=== PATIENT | male | born 1950 | race American Indian/Alaskan Native ===

== ENCOUNTER 2018-11-25 10:40 | Inpatient (IN) | payer MEDICARE ==
--- NOTE | 2018-11-25 12:41 | Emergency Department Report ---
Chief Complaint: Chest Pain Stated Complaint: CHEST PAIN/DIZZY Time Seen by Provider: 11/25/18 12:22 - HPI History of Present Illness: 68-year-old -F[place] male presents to the emergency department with complaint of some vertigo-like symptoms with dizziness, as well as some midsternal chest pain has been going on for the past 2 days. The chest pain currently has improved. Patient has a history of diabetes, hypertension and is a tobacco smoker. He has a primary care physician but has not seen them in quite a while. He also complains of some numbness or paresthesias to the fingertips. - ROS Review of Systems: Positive for chest pain, dizziness, vertigo, numbness/paresthesias Negative for shortness of breath, fever, nausea, vomiting, back pain - Exam Vital Signs: Vital Signs 11/25/18 11:01 Temperature 98.4 F Pulse Rate 94 H Respiratory 20 Rate Blood Pressure 171/89 O2 Sat by Pulse 100 Oximetry Physical Exam: Patient is awake and alert and in no acute distress. Heart and lungs sounds are normal to auscultation. MSE screening note: Focused history and physical exam performed. Due to findings the following was ordered: The patient has a recent history of chest pain with multiple risk factors for coronary artery disease. She will be moved over to the main emergency Department side. I have started a chest pain workup on him. ED Disposition for MSE Condition: Stable Referrals: PRIMARY CARE, [Primary Care Provider] - 3-5 Days
[2018-11-25] MEDS ORDERED: ASPIRIN PO ONE (12:56)
[2018-11-25] MEDS ORDERED: NITRO-BID 2% TP ONE (12:56)
--- NOTE | 2018-11-25 13:03 | Emergency Department Report ---
HPI - General Chief Complaint: Chest Pain Time Seen by Provider: 11/25/18 12:22 - HPI HPI: Room 17 The patient is a 68-year-old male presenting with a chief complaint of chest pain. The patient states for the past 2-3 days he's had intermittent dull sub sternal chest pain. The patient states he feels near syncopal at times in the fingers on both hands are numb intermittently. Patient denies shortness of breath, nausea/vomiting or diaphoresis with this chest pain. Patient states he's never had a stress test or cardiac catheterization Location: Chest Duration: Intermittent 2-3 days Quality: Dull Severity: Currently 0/10 Modifying factors: [see above] Context: [see above] Mode of transportation: Unknown ED Past Medical Hx - Past Medical History Previous Medical History?: Yes Hx Hypertension: Yes (off of meds) Hx Diabetes: Yes (SINCE 1999) - Surgical History Past Surgical History?: No - Family History Family history: no significant - Social History Smoking Status: Never Smoker Substance Use Type: None - Medications Home Medications: Home Medications Medication Instructions Recorded Confirmed Last Taken Type HYDROcodone/APAP 5-325 [[place] 1 - 2 each PO Q6HR PRN #20 tablet 01/01/14 07/15/15 Unknown Rx 5/325 mg] Ibuprofen [Motrin 800 MG tab] 800 mg PO TID PRN #20 tablet 01/01/14 07/21/15 07/07/15 Rx Amlodipine Besylate 5 mg PO DAILY 07/15/15 07/21/15 07/21/15 06:30 History AtorvaSTATin [Lipitor] 20 mg PO DAILY 07/15/15 07/21/15 07/21/15 06:30 History Losartan Potassium 100 mg PO DAILY 07/15/15 07/21/15 07/21/15 06:30 History Metformin HCl [Metformin] 1,000 mg PO BID 07/15/15 07/21/15 07/20/15 17:00 History ED Review of Systems ROS: Stated complaint: CHEST PAIN/DIZZY Other details as noted in HPI Constitutional: denies: diaphoresis Eyes: denies: eye pain ENT: denies: throat pain Respiratory: denies: shortness of breath Cardiovascular: chest pain Endocrine: no symptoms reported Gastrointestinal: denies: nausea, vomiting Genitourinary: denies: dysuria Musculoskeletal: denies: back pain Neurological: paresthesias Physical Exam - Physical Exam Vital Signs: Vital Signs 11/25/18 11:01 Temperature 98.4 F Pulse Rate 94 H Respiratory 20 Rate Blood Pressure 171/89 O2 Sat by Pulse 100 Oximetry Physical Exam: GENERAL: The patient is well-developed well-nourished male sitting on stretcher not appearing to be in acute distress. [] HEENT: Normocephalic. Atraumatic. Extraocular motions are intact. Patient has moist mucous membranes. NECK: Supple. Trachea midline CHEST/LUNGS: Clear to auscultation. There is no respiratory distress noted. HEART/CARDIOVASCULAR: Regular. There is no tachycardia. There is no gallop rub or murmur. ABDOMEN: Abdomen is soft, nontender. Patient has normal bowel sounds. There is no abdominal distention. SKIN: There is no rash. There is no edema. There is no diaphoresis. NEURO: The patient is awake, alert, and oriented. The patient is cooperative. The patient has normal speech MUSCULOSKELETAL: There is no evidence of acute injury. ED Course Vital Signs 11/25/18 11:01 Temperature 98.4 F Pulse Rate 94 H Respiratory 20 Rate Blood Pressure 171/89 O2 Sat by Pulse 100 Oximetry ED Medical Decision Making - Lab Data Result diagrams: 11/25/18 12:50 11/25/18 12:50 Laboratory Tests 11/25/18 11/25/18 11/25/18 12:50 12:50 12:50 WBC 6.7 RBC 4.39 Hgb 13.1 Hct 39.6 MCV 90 MCH 30 MCHC 33 RDW 13.6 Plt Count 339 Lymph % (Auto) 37.9 H [place] % (Auto) 9.1 H Eos % (Auto) 2.3 Baso % (Auto) 1.3 Lymph # 2.6 [place] # 0.6 Eos # 0.2 Baso # 0.1 Seg Neutrophils % 49.4 Seg Neutrophils # 3.3 PT 12.6 INR 0.90 APTT 22.7 L Sodium 138 Potassium 4.2 Chloride 99.3 Carbon Dioxide 28 Anion Gap 15 BUN 10 Creatinine 0.7 L Estimated GFR > 60 BUN/Creatinine Ratio 14 Glucose 281 H Calcium 9.6 Troponin T < 0.010 - EKG Data -: EKG Interpreted by Ak EKG shows normal: sinus rhythm Rate: normal - EKG Data When compared to previous EKG there are: previous EKG unavailable Interpretation: nonspecific ST-T wave mark anthony (T-wave inversion in lead aVL) - Radiology Data Radiology results: report reviewed (chest x-ray), image reviewed (chest x-ray) interpreted by me: Chest x-ray-no focal infiltrates, no pneumothorax [facility] [address] [place] [address] XRay Report Signed Patient: SHANE REYES JR MR#: [id number] : 1950 Acct:[id number] Age/Sex: 68 / M ADM Date: 11/25/18 Loc: ED Attending Dr: Ordering Physician: KEYLA TOMLIN DO Date of Service: 11/25/18 Procedure(s): XR chest 1V ap Accession Number(s): [id number] cc: KEYLA TOMLIN DO Fluoro Time In Minutes: FINAL REPORT PROCEDURE: XR CHEST 1V AP TECHNIQUE: Chest radiograph anteroposterior view. CPT 58219 HISTORY: Chest Pain COMPARISON: No prior studies are available for comparison. FINDINGS: Heart: Normal. Mediastinum/Vessels: Normal. Lungs/Pleural space: No infiltrate, effusion, or pneumothorax. Bony thorax: No acute osseous abnormality. Life support devices: None. IMPRESSION: No radiographic evidence of acute cardiopulmonary abnormality. Transcribed By: [facility] Dictated By: JESSICA MORALES M.D. Electronically Authenticated By: JESSICA MORALES M.D. Signed Date/Time: 11/25/18 1325 DD/ 1326 TD/TT: 11/25/18 1326 - Differential Diagnosis ACS, pericarditis, GERD Critical care attestation.: If time is entered above; I have spent that time in minutes in the direct care of this critically ill patient, excluding procedure time. ED Disposition Clinical Impression: Chest pain Disposition: OP ADMIT IP TO THIS HOSP Is pt being admited?: Yes Does the pt Need Aspirin: Yes Condition: Fair Instructions: Chest Pain (ED) Referrals: PRIMARY CARE, [Primary Care Provider] - 3-5 Days Time of Disposition: 14:03 (hospitalist notified (Dr. Gomez))
[2018-11-25 13:07] LABS: Basophils # (Auto) 0.1 K/mm3 (0.0-0.1); Basophils % (Auto) 1.3 % (0.0-1.8); Eosinophils # (Auto) 0.2 K/mm3 (0.0-0.4); Eosinophils % (Auto) 2.3 % (0.0-4.3); Hematocrit 39.6 % (35.5-45.6); Hemoglobin 13.1 gm/dl (11.8-15.2); Lymphocytes # (Auto) 2.6 K/mm3 (1.2-5.4); Lymphocytes % (Auto) 37.9 % (13.4-35.0); Mean Corpuscular HGB Conc 33 % (32-34); Mean Corpuscular Hemoglobin 30 pg (28-32); Mean Corpuscular Volume 90 fl (84-94); Monocytes # (Auto) 0.6 K/mm3 (0.0-0.8); Monocytes % (Auto) 9.1 % (0.0-7.3); Platelet Count 339 K/mm3 (140-440); Red Blood Count 4.39 M/mm3 (3.65-5.03); Red Cell Distribution Width 13.6 % (13.2-15.2)
[2018-11-25 13:22] LABS: INR 0.9 (0.87-1.13)
[2018-11-25 13:23] LABS: Partial Thromboplastin Time 22.7 Sec. (24.2-36.6)
[2018-11-25 13:24] LABS: BUN/Creatinine Ratio 14; Blood Urea Nitrogen 10 mg/dL (9-20); Calcium 9.6 mg/dL (8.4-10.2); Hemolysis Index 23
--- NOTE | 2018-11-25 13:25 | XRay Report ---
FINAL REPORT PROCEDURE: XR CHEST 1V AP TECHNIQUE: Chest radiograph anteroposterior view. CPT 18552 HISTORY: Chest Pain COMPARISON: No prior studies are available for comparison. FINDINGS: Heart: Normal. Mediastinum/Vessels: Normal. Lungs/Pleural space: No infiltrate, effusion, or pneumothorax. Bony thorax: No acute osseous abnormality. Life support devices: None. IMPRESSION: No radiographic evidence of acute cardiopulmonary abnormality.
--- NOTE | 2018-11-25 14:11 | History and Physical Report ---
History of Present Illness Chief complaint: My chest hurts History of present illness: 68 YO Male with HTN, DM, Medication Noncompliance presents to ED for evaluation. Pt states that he has experienced chest pain for the past 3 days with worsening symptoms over the past 1 day. Pt states that pain is 5/10, Intermittent, substernal, not worsened with exertion, not relieved with rest. Pt denies fever, chills, palpitations, NVD, Shortness of breath, hemoptysis, unilateral leg swelling, calf pain, orthopnea/PND, skin rash or recent ill contacts. Pt transported to [facility] for further care and evaluation. Pt seen and evaluated in ED and found to have symptoms consistent with ACS as well as Diastolic CHF. Pt admitted to telemetry. Cardiology consulted in ED. Past History Past Medical History: diabetes, hypertension Past Surgical History: No surgical history, Other (revieewed) Social history: , lives with family. denies: smoking, alcohol abuse, prescription drug abuse Family history: diabetes, hypertension Medications and Allergies Allergies Allergy/AdvReac Type Severity Reaction Status Date / Time No Known Allergies Allergy Unverified 01/01/14 09:50 Home Medications Medication Instructions Recorded Confirmed Last Taken Type HYDROcodone/APAP 5-325 [[place] 1 - 2 each PO Q6HR PRN #20 tablet 01/01/14 0 07/15/15 Unknown Rx 5/325 mg] Ibuprofen [Motrin 800 MG tab] 800 mg PO TID PRN #20 tablet 01/01/14 07/21/15 07/07/15 Rx Amlodipine Besylate 5 mg PO DAILY 07/15/15 07/21/15 07/21/15 06:30 History AtorvaSTATin [Lipitor] 20 mg PO DAILY 07/15/15 07/21/15 07/21/15 06:30 History Losartan Potassium 100 mg PO DAILY 07/15/15 07/21/15 07/21/15 06:30 History Metformin HCl [Metformin] 1,000 mg PO BID 07/15/15 07/21/15 07/20/15 17:00 History Review of Systems Constitutional: no weight loss, no weight gain, no fever, no chills Ears, nose, mouth and throat: no ear pain, no ear discharge, no tinnitis, no decreased hearing, no nose pain, no nasal congestion Cardiovascular: chest pain, no edema, no syncope, no lightheadedness, no shortness of breath Respiratory: no cough, no cough with sputum, no excessive sputum, no hemoptysis, no shortness of breath Gastrointestinal: no nausea, no vomiting, no diarrhea, no constipation, no change in bowel habits Genitourinary Male: no hematuria, no flank pain, no discharge, no urinary frequency, no urinary hesitancy Rectal: no pain, no incontinence, no bleeding Musculoskeletal: no neck stiffness, no neck pain, no shooting arm pain, no low back pain, no shooting leg pain Integumentary: no rash, no pruritis, no redness, no sores, no wounds Neurological: no transient paralysis, no paralysis, no weakness, no parathesias, no numbness, no tingling, no seizures Psychiatric: no anxiety, no memory loss, no change in sleep habits, no sleep disturbances, no insomnia, no hypersomnia, no change in appetite Endocrine: no cold intolerance, no heat intolerance, no excessive thirst, no polydipsia, no polyuria, no nocturia Hematologic/Lymphatic: no easy bruising, no easy bleeding, no lymphadenopathy, no lymphedema Allergic/Immunologic: no urticaria, no persistent infections, no anaphylaxis Exam - Constitutional Vitals: Temp Pulse Resp BP Pulse Ox 98.4 F 94 H 20 171/89 100 11/25/18 11:01 11/25/18 11:01 11/25/18 11:01 11/25/18 11:01 11/25/18 11:01 General appearance: Present: mild distress, cachectic - EENT Eyes: Present: PERRL ENT: hearing intact, clear oral mucosa - Neck Neck: Present: supple, normal ROM - Respiratory Respiratory effort: normal Respiratory: bilateral: CTA - Cardiovascular Heart Sounds: Present: S1 & S2. Absent: rub, click - Extremities Extremities: pulses symmetrical, No edema Peripheral Pulses: within normal limits - Abdominal General gastrointestinal: Present: soft, non-tender, non-distended, normal bowel sounds Male genitourinary: Present: normal - Integumentary Integumentary: Present: clear, warm, dry - Musculoskeletal Musculoskeletal: gait normal, strength equal bilaterally - Psychiatric Psychiatric: appropriate mood/affect, intact judgment & insight - Neurologic Neurologic: CNII-XII intact, moves all extremities Results - Labs CBC & Chem 7: 11/25/18 12:50 11/25/18 12:50 Labs: Abnormal lab results 11/25/18 11/25/18 11/25/18 Range/Units 12:50 12:50 12:50 Lymph % (Auto) 37.9 H (13.4-35.0) % [place] % (Auto) 9.1 H (0.0-7.3) % APTT 22.7 L (24.2-36.6) Sec. Creatinine 0.7 L (0.8-1.5) mg/dL Glucose 281 H (75-100) mg/dL Assessment and Plan - Patient Problems (1) ACS (acute coronary syndrome) Current Visit: Yes Status: Acute Plan to address problem: Admit to telemetry: serial cardiac enzymes, ekg, telemetry, stress test, supplemental oxygen, morphine, nitro, aspirin. (2) Diastolic CHF Current Visit: Yes Status: Acute Qualifiers: Heart failure chronicity: acute Qualified Code(s): I50.31 - Acute diastolic (congestive) heart failure Plan to address problem: Admit to telemetry, thyroid panel, strict I/o, monitor uop q shift, daily weight, blood pressure control, echo, cardiology consulted in ED, bnp, d dimer. (3) Severe malnutrition Current Visit: Yes Status: Acute Plan to address problem: encourage increased protein intake (4) Diabetes Current Visit: Yes Status: Acute Plan to address problem: ADA diet, insulin, accu check (5) Neuropathy Current Visit: Yes Status: Acute Plan to address problem: Secondary to DM: neurontin TID, supportive care, (6) DVT prophylaxis Current Visit: Yes Status: Acute Plan to address problem: SCD to BLE while in bed.
[2018-11-25] MEDS ORDERED: PROVENTIL IH PRN (14:13)
[2018-11-25] MEDS ORDERED: TYLENOL PO PRN (14:13)
[2018-11-25] MEDS ORDERED: SODIUM CHLORIDE FLUSH SYRINGE 10 ML IV PRN ×2 (14:13)
[2018-11-25] MEDS ORDERED: NITROSTAT SL PRN (14:13)
[2018-11-25] MEDS ORDERED: BABY ASPIRIN PO STA (14:13)
[2018-11-25] MEDS ORDERED: MORPHINE IV PRN (14:13)
[2018-11-25] MEDS ORDERED: ZOFRAN IV PRN (14:13)
[2018-11-25] MEDS ORDERED: NORCO 5/325 PO PRN (14:17)
[2018-11-25] MEDS ORDERED: D50W (25GM) Syringe IV PRN (15:12)
[2018-11-25] MEDS ORDERED: APRESOLINE IV PRN (15:12)
[2018-11-25 15:16] LABS: Chol/HDL Ratio 3.17 %
[2018-11-25 15:19] LABS: Free T4 (Free Thyroxine) 1.16 ng/dL (0.76-1.46)
[2018-11-25] MEDS ORDERED: NEURONTIN ONE (15:27)
[2018-11-25] MEDS: NEURONTIN PO SCH ×2 (15:30→21:32)
[2018-11-25] MEDS: HumaLOG SUB-Q SCH (18:07)
[2018-11-25] MEDS: PEPCID PO SCH (21:32)
[2018-11-26] MEDS: NEURONTIN PO SCH ×3 (05:42→22:43)
[2018-11-26] MEDS: HumaLOG SUB-Q SCH ×5 (09:24→22:39)
[2018-11-26] MEDS: COZAAR PO SCH (09:25)
[2018-11-26] MEDS: NORVASC PO SCH (09:26)
[2018-11-26] MEDS: PEPCID PO SCH ×2 (09:26→22:43)
[2018-11-26] MEDS: SODIUM CHLORIDE FLUSH SYRINGE 10 ML IV SCH ×3 (09:27→22:44)
--- NOTE | 2018-11-26 10:08 | Consultation ---
History of Present Illness Consult date: 11/26/18 Requesting physician: NORMAN PEDRAZA Consult reason: chest pain History of present illness: This is a 68-year-old gentleman with history of hypertension diabetes and cholesterol smoke primary care doctor is Dr. Saloni Mayberry who takes care of his who had a stroke. Patient states the last several days on and off midsternal chest pain lasting for minutes to seconds sharp nonradiating no shortness of breath sometimes with activity but have left arm numbness. Patient states her last several weeks been having difficulty walking and feels well. Currently is chest pain-free no nausea no vomiting no seizure type activity no syncope. Patient was found to have elevated blood pressure on admission patient feels better with lower blood pressure and with the nitroglycerin paste. Past History Past Medical History: diabetes, hypertension, hyperlipidemia Past Surgical History: TURP, Other Social history: , lives with family, smoking. denies: alcohol abuse, prescription drug abuse Family history: diabetes, hypertension Medications and Allergies Allergies Allergy/AdvReac Type Severity Reaction Status Date / Time No Known Allergies Allergy Unverified 01/01/14 09:50 Home Medications Medication Instructions Recorded Confirmed Last Taken Type HYDROcodone/APAP 5-325 [[place] 1 - 2 each PO Q6HR PRN #20 tablet 01/01/14 11/25/18 Unknown Rx 5/325 mg] Ibuprofen [Motrin 800 MG tab] 800 mg PO TID PRN #20 tablet 01/01/14 11/25/18 07/07/15 Rx Amlodipine Besylate 5 mg PO DAILY 07/15/15 11/25/18 07/21/15 06:30 History AtorvaSTATin [Lipitor] 20 mg PO DAILY 07/15/15 11/25/18 07/21/15 06:30 History Losartan Potassium 100 mg PO DAILY 07/15/15 11/25/18 07/21/15 06:30 History Metformin HCl [Metformin] 500 mg PO DAILY 07/15/15 11/25/18 07/20/15 17:00 History Lisinopril [Zestril] 20 mg PO QDAY 11/25/18 11/25/18 Unknown History Active Meds: Active Medications Acetaminophen (Tylenol) 650 mg PO Q4H PRN PRN Reason: Pain MILD(1-3)/Fever >100.5/HYMAN Last Admin: 11/25/18 20:17 Dose: 650 mg Documented by: Acetaminophen/Hydrocodone Bitart ([place] 5/325) 1 each PO Q6HR PRN PRN Reason: Pain Albuterol (Proventil) 2.5 mg IH Q4HRT PRN PRN Reason: Shortness Of Breath Amlodipine Besylate (Norvasc) 5 mg PO DAILY [facility] Last Admin: 11/26/18 09:26 Dose: 5 mg Documented by: Atorvastatin Calcium (Lipitor) 20 mg PO DAILY [facility] Last Admin: 11/26/18 09:26 Dose: 20 mg Documented by: Dextrose (D50w (25gm) Syringe) 50 ml IV PRN PRN PRN Reason: Hypoglycemia Famotidine (Pepcid) 20 mg PO BID [facility] Last Admin: 11/26/18 09:26 Dose: 20 mg Documented by: Gabapentin (Neurontin) 300 mg PO Q8HR [facility] Last Admin: 11/26/18 05:42 Dose: 300 mg Documented by: Hydralazine HCl (Apresoline) 10 mg IV Q6HR PRN PRN Reason: Hypertension SYS>155 Last Admin: 11/25/18 15:30 Dose: 10 mg Documented by: Insulin Human Lispro (Humalog) 0 unit SUB-Q ACHS [facility]; Protocol Last Admin: 11/26/18 09:24 Dose: 3 unit Documented by: Losartan Potassium (Cozaar) 100 mg PO QDAY [facility] Last Admin: 11/26/18 09:25 Dose: 100 mg Documented by: Metoprolol Tartrate (Lopressor) 25 mg PO BID [facility] Morphine Sulfate (Morphine) 2 mg IV Q4H PRN PRN Reason: Pain, Moderate (4-6) Nitroglycerin (Nitrostat) 0.4 mg SL Q5M PRN PRN Reason: Chest Pain Ondansetron HCl (Zofran) 4 mg IV Q8H PRN PRN Reason: Nausea And Vomiting Sodium Chloride (Sodium Chloride Flush Syringe 10 Ml) 10 ml IV BID [facility] Last Admin: 11/26/18 09:27 Dose: 10 ml Documented by: Sodium Chloride (Sodium Chloride Flush Syringe 10 Ml) 10 ml IV PRN PRN PRN Reason: LINE FLUSH Review of Systems All systems: negative (as per the HPI) Physical Examination Vital Signs Temp Pulse Resp BP Pulse Ox 98.4 F 94 H 20 171/89 100 11/25/18 11:01 11/25/18 11:01 11/25/18 11:01 11/25/18 11:01 11/25/18 11:01 General appearance: no acute distress, well-nourished HEENT: Positive: PERRL, Mucus Membranes Moist Neck: Positive: neck supple, trachea midline Cardiac: Positive: Reg Rate and Rhythm, S1/S2. Negative: Audible Murmur Lungs: Positive: clear to auscultation, Normal Breath Sounds Neuro: Positive: Grossly Intact Abdomen: Positive: Soft, Active Bowel Sounds. Negative: Tender, Distended Male genitourinary: Positive: normal Skin: Positive: Clear Incision: Cardiac Cath Site Musculoskeletal: No Pain, Normal Range of Motion Extremities: Present: normal. Absent: edema Results 11/25/18 12:50 11/25/18 12:50 Coagulation 11/25/18 Range/Units 12:50 PT 12.6 (12.2-14.9) Sec. INR 0.90 (0.87-1.13) APTT 22.7 L (24.2-36.6) Sec. Lipids 11/25/18 Range/Units 14:37 Triglycerides 52 (2-149) mg/dL Cholesterol 149 (50-199) mg/dL HDL Cholesterol 47 (40-59) mg/dL Cholesterol/HDL Ratio 3.17 % CBC 11/25/18 Range/Units 12:50 WBC 6.7 (4.5-11.0) K/mm3 RBC 4.39 (3.65-5.03) M/mm3 Hgb 13.1 (11.8-15.2) gm/dl Hct 39.6 (35.5-45.6) % Plt Count 339 (140-440) K/mm3 Lymph # 2.6 (1.2-5.4) K/mm3 [place] # 0.6 (0.0-0.8) K/mm3 Eos # 0.2 (0.0-0.4) K/mm3 Baso # 0.1 (0.0-0.1) K/mm3 Comprehensive Metabolic Panel 11/25/18 Range/Units 12:50 Sodium 138 (137-145) mmol/L Potassium 4.2 (3.6-5.0) mmol/L Chloride 99.3 (98-107) mmol/L Carbon Dioxide 28 (22-30) mmol/L BUN 10 (9-20) mg/dL Creatinine 0.7 L (0.8-1.5) mg/dL Glucose 281 H (75-100) mg/dL Calcium 9.6 (8.4-10.2) mg/dL EKG interpretations - Telemetry EKG Rhythm: Sinus Rhythm (normal sinus rhythm and LVH nonspecific ST) Assessment and Plan Chest pain ND ruled out Hypertension Smoker Hyperlipidemia Diabetes Recommend offered patient's outpatient stress test given negative troponins and better BP control patient will stay more for treadmill thallium and echocardiogram add beta olaf therapy.
--- NOTE | 2018-11-26 12:53 | Progress Note ---
Assessment and Plan Assessment and plan: 68-year-old man with history of hypertension and diabetes, noncompliance with medications. Presents with chest pain 3 days. Diagnoses Chest pain Hypertensive urgency Diabetes Nonadherence to medications Plan Cardiology input appreciated, patient to get stress test and echo tomorrow Blood pressure poorly controlled, we'll optimize medications Continue insulin for diabetes Has been counseled on improved adherence with medications Chemical DVT prophylaxis History Interval history: Review of systems Constitutional: No fevers, no malaise, no joint pains CVS: No chest pain, no orthopnea, no dyspnea on exertion, no pedal edema GI: No abdominal pain, no diarrhea, no vomiting, no constipation Respiratory: No shortness of breath, no wheezing, no coughing Hospitalist Physical - Physical exam Narrative exam: General.: Appears well, no distress, nontoxic HEENT: Moist mucous membranes, extraocular muscles intact, no lymphadenopathy Neck: supple Cardiac: S1-S2 heard Lungs: clear to auscultation bilaterally Abdomen: soft , nontender, nondistended, bowel sounds positive Extremities: no edema clubbing or cyanosis Skin: no rash or lesions Neurologic: no gross focal deficits Psych: appropriate behavior, appropriate mood, corporative, judgment intact - Constitutional Vitals: Temp Pulse Resp BP Pulse Ox 98.3 F 95 H 18 111/65 99 11/26/18 11:31 11/26/18 11:31 11/26/18 11:31 11/26/18 11:31 11/26/18 11:31 General appearance: Present: no acute distress, well-nourished Results - Labs CBC & Chem 7: 11/25/18 12:50 11/25/18 12:50 Labs: Laboratory Last Values WBC 6.7 K/mm3 (4.5-11.0) 11/25/18 12:50 RBC 4.39 M/mm3 (3.65-5.03) 11/25/18 12:50 Hgb 13.1 gm/dl (11.8-15.2) 11/25/18 12:50 Hct 39.6 % (35.5-45.6) 11/25/18 12:50 MCV 90 fl (84-94) 11/25/18 12:50 MCH 30 pg (28-32) 11/25/18 12:50 MCHC 33 % (32-34) 11/25/18 12:50 RDW 13.6 % (13.2-15.2) 11/25/18 12:50 Plt Count 339 K/mm3 (140-440) 11/25/18 12:50 Lymph % (Auto) 37.9 % (13.4-35.0) H 11/25/18 12:50 [place] % (Auto) 9.1 % (0.0-7.3) H 11/25/18 12:50 Eos % (Auto) 2.3 % (0.0-4.3) 11/25/18 12:50 Baso % (Auto) 1.3 % (0.0-1.8) 11/25/18 12:50 Lymph # 2.6 K/mm3 (1.2-5.4) 11/25/18 12:50 [place] # 0.6 K/mm3 (0.0-0.8) 11/25/18 12:50 Eos # 0.2 K/mm3 (0.0-0.4) 11/25/18 12:50 Baso # 0.1 K/mm3 (0.0-0.1) 11/25/18 12:50 Seg Neutrophils % 49.4 % (40.0-70.0) 11/25/18 12:50 Seg Neutrophils # 3.3 K/mm3 (1.8-7.7) 11/25/18 12:50 PT 12.6 Sec. (12.2-14.9) 11/25/18 12:50 INR 0.90 (0.87-1.13) 11/25/18 12:50 APTT 22.7 Sec. (24.2-36.6) L 11/25/18 12:50 D-Dimer 135.00 ng/mlDDU (0-234) 11/25/18 14:37 Sodium 138 mmol/L (137-145) 11/25/18 12:50 Potassium 4.2 mmol/L (3.6-5.0) 11/25/18 12:50 Chloride 99.3 mmol/L (98-107) 11/25/18 12:50 Carbon Dioxide 28 mmol/L (22-30) 11/25/18 12:50 Anion Gap 15 mmol/L 11/25/18 12:50 BUN 10 mg/dL (9-20) 11/25/18 12:50 Creatinine 0.7 mg/dL (0.8-1.5) L 11/25/18 12:50 Estimated GFR > 60 ml/min 11/25/18 12:50 BUN/Creatinine Ratio 14 % 11/25/18 12:50 Glucose 281 mg/dL (75-100) H 11/25/18 12:50 POC Glucose 157 (70-105) H 11/26/18 11:32 Hemoglobin A1c 12.0 % (4-6) H 11/25/18 14:37 Calcium 9.6 mg/dL (8.4-10.2) 11/25/18 12:50 Troponin T < 0.010 ng/mL (0.00-0.029) 11/25/18 23:01 NT-Pro-B Natriuret Pep 82.88 pg/mL (0-900) 11/25/18 14:37 Triglycerides 52 mg/dL (2-149) 11/25/18 14:37 Cholesterol 149 mg/dL (50-199) 11/25/18 14:37 LDL Cholesterol Direct 107 mg/dL (50-130) 11/25/18 14:37 HDL Cholesterol 47 mg/dL (40-59) 11/25/18 14:37 Cholesterol/HDL Ratio 3.17 % 11/25/18 14:37 TSH 1.170 mlU/mL (0.270-4.200) 11/25/18 14:37 Free T4 1.16 ng/dL (0.76-1.46) 11/25/18 14:37
[2018-11-26] MEDS: LOPRESSOR PO SCH ×2 (18:00→22:42)
[2018-11-26] MEDS ORDERED: LOVENOX SUB-Q SCH (22:00)
[2018-11-27] MEDS: NEURONTIN PO SCH ×2 (05:53→14:20)
[2018-11-27] MEDS: HumaLOG SUB-Q SCH ×2 (08:34→11:42)
[2018-11-27] MEDS ORDERED: LEXISCAN IV ONE (10:25)
[2018-11-27] MEDS: PEPCID PO SCH (11:34)
[2018-11-27] MEDS: SODIUM CHLORIDE FLUSH SYRINGE 10 ML IV SCH (11:35)
[2018-11-27] MEDS: COZAAR PO SCH (11:38)
[2018-11-27 11:39] VITALS: BP 172/81
[2018-11-27] MEDS: LOPRESSOR PO SCH (11:39)
[2018-11-27] MEDS: NORVASC PO SCH (11:39)
--- NOTE | 2018-11-27 11:41 | Progress Note ---
Assessment and Plan Assessment: Chest pain NE ruled out Hypertension Smoker Hyperlipidemia Diabetes Plan: S/p treadmill MPI stress test this AM which was negative. Echo reviewed - EF 60-65%, mild MR. Currently stable cardiac status. Pt may discharge home from cardiology standpoint. Recommend pt follow up in our office with Dr. Gibbs within 1-2 weeks of hospital discharge ([phone]). The patient has been seen in conjunction with Dr. Velasquez who agrees with the assessment and plan of care. Subjective Date of service: 11/27/18 Principal diagnosis: cp; htn Interval history: for treadmill MPI stress test today Objective Last Vital Signs Temp 97.5 F L 11/27/18 11:39 Pulse 80 11/27/18 11:38 Resp 20 11/27/18 11:38 BP 172/81 11/27/18 11:38 Pulse Ox 98 11/27/18 11:38 - Physical Examination General: No Apparent Distress HEENT: Positive: PERRL, Mucus Membranes Moist Neck: Positive: neck supple, trachea midline Cardiac: Positive: Reg Rate and Rhythm, S1/S2 Lungs: Positive: clear to auscultation Neuro: Positive: Grossly Intact Abdomen: Positive: Soft, Active Bowel Sounds. Negative: Tender, Distended Skin: Positive: Clear Incision: Cardiac Cath Site Musculoskeletal: No Pain, Normal Range of Motion Extremities: Present: normal. Absent: edema
--- NOTE | 2018-11-27 12:59 | Discharge Summary ---
Providers - Providers Date of Admission: 11/25/18 14:14 Attending physician: DIDI BARBOSA MD 11/25/18 Consult to Cardiac Rehabilitation [CONS] Routine Reason For Exam: Phase I 11/25/18 14:14 Consult to Cardiology [CONS] Routine Consulting Provider: ARLETTE STEPHENSON Reason For Exam: acs Primary care physician: [employer] Hospitalization Condition: Fair Hospital course: 68-year-old man with history of hypertension and diabetes, noncompliance with medications. Presents with chest pain 3 days. His medications are optimized for his high blood pressure. He was counseled about improved adherence to his blood pressure medications. He was treated with insulin for diabetes. The patient and went on to have a stress test and echocardiogram, the results showed normal MPI and preserved EF Diagnoses Chest pain due to hypertensive urgency Hypertensive urgency Diabetes Nonadherence to medications Disposition: TO HOME OR SELFCARE Time spent for discharge: 33 minutes Core Measure Documentation - Palliative Care Palliative Care/ Comfort Measures: Not Applicable - Core Measures Any of the following diagnoses?: none Exam - Constitutional Vitals: Temp Pulse Resp BP Pulse Ox 97.5 F L 80 20 172/81 98 11/27/18 11:39 11/27/18 11:38 11/27/18 11:38 11/27/18 11:38 11/27/18 11:38 General appearance: Present: no acute distress, well-nourished - EENT Eyes: Present: PERRL ENT: hearing intact, clear oral mucosa - Neck Neck: Present: supple, normal ROM - Respiratory Respiratory effort: normal Respiratory: bilateral: CTA - Cardiovascular Heart Sounds: Present: S1 & S2. Absent: rub, click - Extremities Extremities: pulses symmetrical, No edema Peripheral Pulses: within normal limits - Abdominal General gastrointestinal: Present: soft, non-tender, non-distended, normal bowel sounds Male genitourinary: Present: normal - Integumentary Integumentary: Present: clear, warm, dry - Musculoskeletal Musculoskeletal: gait normal, strength equal bilaterally - Psychiatric Psychiatric: appropriate mood/affect, intact judgment & insight - Neurologic Neurologic: CNII-XII intact, moves all extremities Plan Follow up with: PRIMARY CARE, [Primary Care Provider] - 3-5 Days Prescriptions: amLODIPine [Norvasc] 5 mg PO DAILY #30 tablet AtorvaSTATin [Lipitor] 20 mg PO DAILY #30 tablet Gabapentin [Neurontin] 300 mg PO Q8HR #90 capsule Losartan [Cozaar] 100 mg PO QDAY #60 tablet metFORMIN [Glucophage] 500 mg PO BID #60 tablet Metoprolol [Lopressor TAB] 25 mg PO BID #60 tablet
--- NOTE | 2018-11-27 23:20 | Treadmill Report ---
NUCLEAR PERFUSION SCAN REFERRING PHYSICIAN: Flakito Gibbs MD PROTOCOL: The patient was brought to the stress lab in a postabsorptive state, given 10 mCi of technetium 99m at rest. The patient underwent rest imaging. The patient went treadmill stress test per standard protocol. At peak stress, the patient was given 26 mCi of technetium 99m. Shortly thereafter, the patient underwent stress imaging. Raw imaging reveals mild GI artifact. No significant motion artifact. SPECT imaging examined carefully in horizontal long axis, vertical long axis, short axis views. There is normal homogenous uptake of radioisotope in all reported segments. No evidence of significant fixed or reversible perfusion defects suggestive of prior infarction or ischemia. Gated wall motion reveals normal systolic thickening, calculated ejection fraction of 60%. No TID. CONCLUSIONS: 1. Normal myocardial perfusion scan without evidence of active ischemia or prior infarction. 2. Normal left ventricular systolic performance without evidence of stress-induced segmental wall motion abnormalities or transient ischemic dilatation. 3. Treadmill stress test is reported separately. JOB# [id number] SBM/NTS
== END 2018-11-27 16:45 | disposition home or self-care (01) | DRG 291 ==
LOC: ED 10:40 → 4A 14:14
PROVIDERS: ADMIT Internal Medicine; ATTEND Internal Medicine
DX: I11.0 Hypertensive heart disease with heart failure (principal); I50.31 Acute diastolic (congestive) heart failure; E43 Unspecified severe protein-calorie malnutrition; Z68.1 Body mass index [BMI] 19.9 or less, adult; I16.0 Hypertensive urgency; F17.210 Nicotine dependence, cigarettes, uncomplicated; E11.40 Type 2 diabetes mellitus with diabetic neuropathy, unspecified; E78.5 Hyperlipidemia, unspecified; Z91.14 Patient's other noncompliance with medication regimen; Z79.84 Long term (current) use of oral hypoglycemic drugs; Z83.3 Family history of diabetes mellitus; Z82.49 Family history of ischemic heart disease and other diseases of the circulatory system
CPT/HCPCS: 36415; 71045; 78452; 80048; 80061; 82962; 83036; 83880; 84439; 84443; 84484; 85025; 85379; 85610; 85730; 93005; 93010; 93017; 93306; G0378; A9270-GY; A9502; J0360; J1650; J1815; J2785

== ENCOUNTER 2019-03-06 09:44 | Emergency (ER) | payer MEDICARE ==
[2019-03-06] MEDS ORDERED: ASPIRIN PO ONE (09:57)
[2019-03-06 10:28] LABS: Basophils # (Auto) 0.1 K/mm3 (0.0-0.1); Basophils % (Auto) 1.3 % (0.0-1.8); Eosinophils # (Auto) 0.1 K/mm3 (0.0-0.4); Eosinophils % (Auto) 1.6 % (0.0-4.3); Hematocrit 35.2 % (35.5-45.6); Hemoglobin 11.7 gm/dl (11.8-15.2); Lymphocytes # (Auto) 2.6 K/mm3 (1.2-5.4); Lymphocytes % (Auto) 31.7 % (13.4-35.0); Mean Corpuscular HGB Conc 33 % (32-34); Mean Corpuscular Volume 90 fl (84-94); Monocytes # (Auto) 0.8 K/mm3 (0.0-0.8); Monocytes % (Auto) 9.4 % (0.0-7.3); Platelet Count 354 K/mm3 (140-440); Red Blood Count 3.91 M/mm3 (3.65-5.03); Red Cell Distribution Width 13.2 % (13.2-15.2)
[2019-03-06] MEDS ORDERED: ANTIVERT PO ONE (10:40)
[2019-03-06 10:53] LABS: BUN/Creatinine Ratio 17; Blood Urea Nitrogen 10 mg/dL (9-20); Calcium 9.1 mg/dL (8.4-10.2); Hemolysis Index 8
--- NOTE | 2019-03-06 11:24 | XRay Report ---
AP CHEST: HISTORY: chest pain AP view of the chest demonstrates a normal mediastinal and cardiac contour with clear lungs and normal bony and soft tissue structures. IMPRESSION: Unremarkable AP chest. No significant change since 11/25/18.
--- NOTE | 2019-03-06 11:48 | Cat Scan Report ---
PROCEDURE: CT HEAD/BRAIN WO CON TECHNIQUE: Computerized tomography of the head was performed without contrast material. CT DOSE LENGTH PRODUCT: 920.5 mGy-cm. HISTORY: dizziness COMPARISONS: None currently available. FINDINGS: Decreased attenuation regions in the periventricular and subcortical white matter are nonspecific and may represent small vessel ischemic disease, encephalopathy, edema, or a demyelinating process. Smal l vessel ischemic disease (leukoaraiosis) favored. Vascular calcifications. There is no evidence for acute ischemia. There is no hemorrhage. There is no midline shift. There is no hydrocephalus. There is no mass. Age appropriate vyas-white matter attenuation is noted. Prominent basilar artery suggests systemic hypertension. There is no calvarial fracture. The temporal bones demonstrate aerated mastoid air cells. The middle ears appear unremarkable. Paranasal sinuses are unremarkable. Globes are intact. IMPRESSION: * No acute intracranial findings. * Chronic ischemic disease. * Suspect systemic hypertension. This document is electronically signed by Long Valentino MD., March 06 2019 11:46:13 AM ET
--- NOTE | 2019-03-06 12:26 | Emergency Department Report ---
ED General Adult HPI - General Chief complaint: Extremity Injury, Upper Stated complaint: DIZZINESS,LEFT CHEST PAIN Time Seen by Provider: 03/06/19 10:34 Source: patient Mode of arrival: Ambulatory Limitations: No Limitations - History of Present Illness Initial comments: Patient presents to the emergency department with chief complaint of dizziness does started Tuesday while helping his brother move. Patient denies any injury or headache. Patient states the dizziness is worse when he moves his head quickly but goes away when he is completely still. Patient also complains of some left arm soreness after the move as well. Patient denies chest pain, status post breath, abdominal pain, weakness. Patient also denies slurred speech, difficulty writing, weakness. -: Sudden Location: head Severity scale (0 -10): 0 Improves with: rest Worsens with: movement Associated Symptoms: denies other symptoms Treatments Prior to Arrival: none - Related Data Previous Rx's Medication Instructions Recorded Last Taken Type HYDROcodone/APAP 5-325 [[place] 1 - 2 each PO Q6HR PRN #20 tablet 01/01/14 Unknown Rx 5-325 mg TAB] Ibuprofen [Motrin 800 MG tab] 800 mg PO TID PRN #20 tablet 01/01/14 07/07/15 Rx AtorvaSTATin [Lipitor] 20 mg PO DAILY #30 tablet 11/27/18 Unknown Rx Gabapentin [Neurontin] 300 mg PO Q8HR #90 capsule 11/27/18 Unknown Rx Losartan [Cozaar] 100 mg PO QDAY #60 tablet 11/27/18 Unknown Rx Metoprolol [Lopressor TAB] 25 mg PO BID #60 tablet 11/27/18 Unknown Rx amLODIPine [Norvasc] 5 mg PO DAILY #30 tablet 11/27/18 Unknown Rx metFORMIN [Glucophage] 500 mg PO BID #60 tablet 11/27/18 Unknown Rx Meclizine [Antivert] 25 mg PO TID PRN #30 tablet 03/06/19 Unknown Rx Allergies Allergy/AdvReac Type Severity Reaction Status Date / Time No Known Allergies Allergy Verified 03/06/19 09:49 ED Review of Systems ROS: Stated complaint: DIZZINESS,LEFT CHEST PAIN Other details as noted in HPI Comment: All other systems reviewed and negative Constitutional: denies: chills, fever Eyes: denies: eye pain, eye discharge, vision change ENT: denies: ear pain, throat pain Respiratory: denies: cough, shortness of breath, wheezing Cardiovascular: denies: chest pain, palpitations Endocrine: no symptoms reported Gastrointestinal: denies: abdominal pain, nausea, diarrhea Genitourinary: denies: urgency, dysuria Musculoskeletal: denies: back pain, joint swelling, arthralgia Skin: denies: rash, lesions Neurological: vertigo. denies: headache, weakness, paresthesias Psychiatric: denies: anxiety, depression Hematological/Lymphatic: denies: easy bleeding, easy bruising ED Past Medical Hx - Past Medical History Hx Hypertension: Yes (off of meds) Hx Diabetes: Yes (SINCE 1999) Hx Liver Disease: No Hx Renal Disease: No Hx Asthma: No Hx HIV: No - Surgical History Past Surgical History?: No - Social History Smoking Status: Current Every Day Smoker Substance Use Type: None - Medications Home Medications: Home Medications Medication Instructions Recorded Confirmed Last Taken Type HYDROcodone/APAP 5-325 [[place] 1 - 2 each PO Q6HR PRN #20 tablet 01/01/14 11/25/18 Unknown Rx 5-325 mg TAB] Ibuprofen [Motrin 800 MG tab] 800 mg PO TID PRN #20 tablet 01/01/14 11/25/18 07/07/15 Rx AtorvaSTATin [Lipitor] 20 mg PO DAILY #30 tablet 11/27/18 Unknown Rx Gabapentin [Neurontin] 300 mg PO Q8HR #90 capsule 11/27/18 Unknown Rx Losartan [Cozaar] 100 mg PO QDAY #60 tablet 11/27/18 Unknown Rx Metoprolol [Lopressor TAB] 25 mg PO BID #60 tablet 11/27/18 Unknown Rx amLODIPine [Norvasc] 5 mg PO DAILY #30 tablet 11/27/18 Unknown Rx metFORMIN [Glucophage] 500 mg PO BID #60 tablet 11/27/18 Unknown Rx Meclizine [Antivert] 25 mg PO TID PRN #30 tablet 03/06/19 Unknown Rx ED Physical Exam - General Limitations: No Limitations General appearance: alert, in no apparent distress - Head Head exam: Present: atraumatic, normocephalic - Eye Eye exam: Present: normal appearance, PERRL, EOMI - ENT ENT exam: Present: mucous membranes moist - Neck Neck exam: Present: normal inspection - Respiratory Respiratory exam: Present: normal lung sounds bilaterally. Absent: respiratory distress, wheezes, rales, rhonchi - Cardiovascular Cardiovascular Exam: Present: regular rate, normal rhythm. Absent: systolic murmur, diastolic murmur, rubs, gallop - GI/Abdominal GI/Abdominal exam: Present: soft, normal bowel sounds. Absent: distended, tenderness - Rectal Rectal exam: Present: deferred - Extremities Exam Extremities exam: Present: normal inspection - Back Exam Back exam: Present: normal inspection - Neurological Exam Neurological exam: Present: alert, oriented X3, CN II-XII intact, normal gait, reflexes normal, other (able to re-create symptoms were rapid eye and head movement; finger-nose, [id number], rapid hand movement all intact). Absent: motor sensory deficit - Psychiatric Psychiatric exam: Present: normal affect, normal mood - Skin Skin exam: Present: warm, dry, intact, normal color. Absent: rash ED Course Vital Signs 03/06/19 09:49 Temperature 98.6 F Pulse Rate 103 H Respiratory 18 Rate Blood Pressure 138/78 O2 Sat by Pulse 99 Oximetry ED Medical Decision Making - Lab Data Result diagrams: 03/06/19 10:16 03/06/19 10:13 Lab Results 03/06/19 03/06/19 03/06/19 Range/Units 10:00 10:13 10:16 WBC 8.1 (4.5-11.0) K/mm3 RBC 3.91 (3.65-5.03) M/mm3 Hgb 11.7 L (11.8-15.2) gm/dl Hct 35.2 L (35.5-45.6) % MCV 90 (84-94) fl MCH 30 (28-32) pg MCHC 33 (32-34) % RDW 13.2 (13.2-15.2) % Plt Count 354 (140-440) K/mm3 Lymph % (Auto) 31.7 (13.4-35.0) % Campbell % (Auto) 9.4 H (0.0-7.3) % Eos % (Auto) 1.6 (0.0-4.3) % Baso % (Auto) 1.3 (0.0-1.8) % Lymph # 2.6 (1.2-5.4) K/mm3 Campbell # 0.8 (0.0-0.8) K/mm3 Eos # 0.1 (0.0-0.4) K/mm3 Baso # 0.1 (0.0-0.1) K/mm3 Seg Neutrophils % 56.0 (40.0-70.0) % Seg Neutrophils # 4.5 (1.8-7.7) K/mm3 Sodium 138 (137-145) mmol/L Potassium 4.0 (3.6-5.0) mmol/L Chloride 102.8 (98-107) mmol/L Carbon Dioxide 24 (22-30) mmol/L Anion Gap 15 mmol/L BUN 10 (9-20) mg/dL Creatinine 0.6 L (0.8-1.5) mg/dL Estimated GFR > 60 ml/min BUN/Creatinine Ratio 17 % Glucose 225 H (75-100) mg/dL POC Glucose 223 H (70-105) Calcium 9.1 (8.4-10.2) mg/dL Troponin T < 0.010 (0.00-0.029) ng/mL - EKG Data -: EKG Interpreted by Me EKG shows normal: sinus rhythm Rate: tachycardia - Radiology Data Radiology results: report reviewed - Medical Decision Making Patient improved with meclizine Discussed results with the patient Critical care attestation.: If time is entered above; I have spent that time in minutes in the direct care of this critically ill patient, excluding procedure time. ED Disposition Clinical Impression: Vertigo Disposition: DC-01 TO HOME OR SELFCARE Is pt being admited?: No Does the pt Need Aspirin: No Condition: Stable Instructions: Vertigo (ED) Additional Instructions: return if worse Prescriptions: Meclizine [Antivert] 25 mg PO TID PRN #30 tablet PRN Reason: Vertigo Referrals: SHAWN BEYER MD [Primary Care Provider] - 3-5 Days Time of Disposition: 12:27
[2019-03-06 12:37] VITALS: BP 131/74
== END 2019-03-06 12:36 | disposition home or self-care (01) ==
LOC: ED 09:44
DX: R42 Dizziness and giddiness (principal); M79.602 Pain in left arm; I10 Essential (primary) hypertension; E11.9 Type 2 diabetes mellitus without complications; F17.200 Nicotine dependence, unspecified, uncomplicated; Z79.899 Other long term (current) drug therapy
CPT/HCPCS: 36415; 70450; 71045; 80048; 82962; 84484; 85025; 93005; 93010